=== PATIENT | female | born 1980 | race American Indian/Alaskan Native ===

== ENCOUNTER 2017-10-18 03:12 | Emergency (ER) | payer OTHER ==
[2017-10-18 03:13] VITALS: BMI 28.3
[2017-10-18 03:33] VITALS: BP 128/77; PULSE 105; RESP 18; TEMP 98; O2SAT 98
== END 2017-10-18 04:14 | disposition left against medical advice (07) ==
LOC: ED 03:12
DX: Z02.89 Encounter for other administrative examinations (principal); S60.511A Abrasion of right hand, initial encounter